=== PATIENT | male | born 1950 | race Caucasian/White ===

== ENCOUNTER 2019-06-01 11:59 | Outpatient (CLI) | payer BC ==
[~2019-06-01] VITALS: Ht 182.9 cm; Wt 102.1 kg
[~2019-06-01 11:59] MED LIST: AMLO10TA7 PO; AMLO1TAB2 PO; ASP81CT GT; ATOR10TA66 PO; HYDR25TA4 PO; LOSA100T57 PO; POTA10TA6 PO; TMSL.4C PO; VALS1TAB43 PO
== END 2019-06-01 12:32 | disposition home or self-care (01) ==
LOC: PREOP 11:59
PROVIDERS: ATTEND Internal Medicine
DX: Z01.818 Encounter for other preprocedural examination (principal)

== ENCOUNTER 2019-06-02 09:20 | Day surgery (SDC) | payer BC ==
--- NOTE | 2019-05-29 18:21 | HISTORY AND PHYSICAL ---
DATE OF SERVICE: COLONOSCOPY HISTORY AND PHYSICAL HISTORY OF PRESENT ILLNESS: The patient is a 68-year-old white male referred by Dr. Silvestre for diagnostic colonoscopy. He has a past history of adenomatous colonic polyps and there is a family history for colon cancer, the index case being his grandmother, who was diagnosed around the age of 40. I last performed colonoscopy on him 3 years ago at which time, he had one tubular adenoma removed from the hepatic flexure and several hyperplastic polyps removed, one from the rectosigmoid junction and the other one from the distal rectum. Since that time, he reports some intermittent small volume bright red blood per rectum, mostly intermittently noted when he wipes. He has had no bowel habit change. Denies any change in weight and has had no abdominal pain. Reports his energy level is good. PAST MEDICAL HISTORY: Significant for hypertension and hyperlipidemia with no known history of vascular disease. He also has a history of ureterolithiasis. PAST SURGICAL HISTORY: Includes left inguinal herniorrhaphy in 1956, tonsillectomy and adenoidectomy in 1957, vasectomy in 1985. He had an L5-S1 hemilaminectomy and foraminectomy in 1995 and epididymectomy in 2004. He had repeat back surgery at the L3-L4 levels per Dr. Vasquez in 2008 and also had repair of a CSF leak post surgery. FAMILY HISTORY: As noted in the HPI. REVIEW OF SYSTEMS: CONSTITUTIONAL: He denies any chills, fever, night sweats or change in weight. CARDIOVASCULAR: He denies dyspnea on exertion, chest pain or history of cardiovascular procedures. PULMONARY: He denies cough, wheezing, hemoptysis, dyspnea on exertion or at rest. GASTROINTESTINAL: As noted in the HPI. PHYSICAL EXAMINATION: GENERAL: Reveals a well-appearing white male, in no acute distress. VITAL SIGNS: Blood pressure was 140/93, weight 230.4 up 6 pounds from 3 years ago. HEENT: Unremarkable. He has a Mallampati class 1 oropharyngeal configuration. Pharynx reveals no evidence for exudate, no erythema. NECK: Revealed no JVD, adenopathy or bruits. CHEST: Clear to auscultation. CARDIOVASCULAR: Reveals a regular rate and rhythm without murmur, S3 or S4. ABDOMEN: Soft, supple without mass, organomegaly or tenderness. No evidence for abdominal aortic aneurysm is noted. No bruits are appreciated. EXTREMITIES: Reveal no cyanosis, clubbing or edema. ASSESSMENT: The patient was set up for diagnostic colonoscopy due to family history for colon cancer as well as past history of multiple adenomatous colonic polyps being removed, although not of the degree to qualify for a polyposis syndrome. Prep instructions with Gallagher-prep kit were given and questions were answered. I thank you for the referral of this pleasant gentleman. Job ID: [id number] DocumentID: [id number] Dictated Date: 05/25/2019 13:23:48 Ophthalmic Nurse Date: 05/25/2019 13:58:20 Dictated By: TIFFANIE MOHR MD MTDD
[~2019-06-02] VITALS: Ht 182.9 cm; Wt 102.1 kg
[2019-06-02 09:40] VITALS: BP 140/98
[2019-06-02] MEDS ORDERED: LIDOCAINE JELLY 2% 6 ML SYRINGE MM PRN (09:45)
[2019-06-02] MEDS ORDERED: MIDAZOLAM 2 MG/2 ML (VERSED) VIAL IVP ONE (09:45)
[2019-06-02] MEDS ORDERED: D5 LR IV SOLUTION 1,000 ML IV PRN (09:45)
[2019-06-02] MEDS ORDERED: fentaNYL INJECTION 100 MCG/2 ML AMP IVP ONE (09:45)
[2019-06-02] MEDS ORDERED: D5 LR IV SOLUTION 1,000 ML IV ONE (09:47)
[2019-06-02] MEDS ORDERED: fentaNYL INJECTION 100 MCG/2 ML AMP ONE ×2 (10:42)
[2019-06-02] MEDS ORDERED: MIDAZOLAM 2 MG/2 ML (VERSED) VIAL ONE ×3 (10:42)
--- OUTSIDE RECORDS SUMMARY | 2019-06-02 10:53 | XMS REPORT | Continuity of Care Document ---
Author Author [facility] Organization [facility] Address Unknown Phone Unavailable Care Team Providers Care Director Clinical Information Services Name Role Phone SAIDA SALAS DO PP Insurance Providers Payer Name Policy Number Subscriber Name Relationship [facility] [id number] Jessenia Paulino 02 Advance Directives Directive Response Recorded Date Advance Directives Y 08/15/13 9:00am Health Care Power of Wildlife Ecologist N 08/15/13 9:00am Organ Donor Y 08/15/13 9:00am Problems No Known Problems or Medical conditions. Allergies, Adverse Reactions, Alerts Allergen Type Severity Reaction Last Updated iodine Allergy Mild HIVES 08/04/10 Medications Medication Dose Units Route Sig Qty Days Aspirin (Baby Aspirin Chewable Tablet) 81 Mg GT Potassium Chloride (Klor-Con 10 Tablet) 1 Each PO DAILY WITH FOOD Amlodipine/Atorvast Jonnathan (Caduet 10 Mg-10 Mg Tablet) 1 Each PO DAILY HCTZ/Valsartan (Diovan Hct 160-25 Mg Tablet) 1 Each PO DAILY Tamsulosin HCl (Flomax) 0.8 Mg PO DAILY@1800 Immunizations Name Given Type Date of Influenza Vaccine 07/14/13 H Response Recorded Date/Time Status not known Unknown Results Test Date Result Interp. Ref. Range BUN/Creatinine Ratio April 17, 2011 8:45am 16 - Basophils # (Auto) April 17, 2011 8:45am 0.1 10^3/uL N 0.0-0.1 Basophils (%) (Auto) April 17, 2011 8:45am 1 % N 0-10 Blood Urea Nitrogen April 17, 2011 8:45am 19 MG/DL H 7-18 Calcium Level April 17, 2011 8:45am 9.0 MG/DL N 8.5-10.1 Carbon Dioxide Level April 17, 2011 8:45am 29 MMOL/L N 21-32 Chloride Level April 17, 2011 8:45am 102 MMOL/L N 101-110 Creatinine April 17, 2011 8:45am 1.2 MG/DL N 0.6-1.3 Eosinophils # (Auto) April 17, 2011 8:45am 0.4 10^3/uL H 0.0-0.3 Eosinophils (%) (Auto) April 17, 2011 8:45am 3 % N 0-10 Glucose Level April 17, 2011 8:45am 91 MG/DL N 74-106 Hematocrit April 17, 2011 8:45am 44 % N 40-54 Hemoglobin April 17, 2011 8:45am 15.5 G/DL N 13.3-17.7 Lymphocytes # (Auto) April 17, 2011 8:45am 1.3 X 10^3 N 1.0-4.0 Lymphocytes (%) (Auto) April 17, 2011 8:45am 13 % N 12-44 Mean Corpuscular Hemoglobin April 17, 2011 8:45am 32 PG N 25-34 Mean Corpuscular Hemoglobin Concent April 17, 2011 8:45am 36 G/DL N 32-36 Mean Corpuscular Volume April 17, 2011 8:45am 89 FL N 80-99 Mean Platelet Volume April 17, 2011 8:45am 11.7 FL H 7.4-10.4 Monocytes # (Auto) April 17, 2011 8:45am 0.8 X 10^3 N 0.0-1.0 Monocytes (%) (Auto) April 17, 2011 8:45am 8 % N 0-12 Neutrophils # (Auto) April 17, 2011 8:45am 7.7 X 10^3 N 1.8-7.8 Neutrophils (%) (Auto) April 17, 2011 8:45am 75 % N 42-75 Platelet Count April 17, 2011 8:45am 185 10^3/uL N 130-400 Potassium Level April 17, 2011 8:45am 3.1 MMOL/L L 3.6-5.0 Red Blood Count April 17, 2011 8:45am 4.89 10^6/uL N 4.35-5.85 Red Cell Distribution Width April 17, 2011 8:45am 13.4 % N 10.0-14.5 Sodium Level April 17, 2011 8:45am 143 MMOL/L N 135-145 White Blood Count April 17, 2011 8:45am 10.2 10^3/uL N 4.3-11.0 Estimat Glomerular Filtration Rate April 17, 2011 8:45am > 60 - Procedures Procedure Code Date LESION REMOVE COLONOSCOPY 14700 10/17/07 LESION REMOVE COLONOSCOPY 80910 08/04/10 MRSA Screen 04/17/11 Encounters Encounter Location Date/Time Departed Emergency Room [facility] 12:00am
--- OUTSIDE RECORDS SUMMARY | 2019-06-02 10:54 | XMS REPORT | Continuity of Care Document ---
Author Organization Unknown Address Unknown Allergies Active Description Code Type Severity Reaction Onset Reported/Identified Relationship to Patient Clinical Status Yes iodine [id number] Drug Allergy Mild HIVES 08/04/2010 Medications There is no data. Problems Date Dx Coded Attending Type Code Diagnosis Diagnosed By 08/15/2013 TIFFANIE MOHR MD Ot 211.3 BENIGN NEOPLASM LG BOWEL 08/15/2013 TIFFANIE MOHR MD Ot 562.10 DIVERTICULOSIS COLON (W/O MENT OF HEMORR 08/15/2013 TIFFANIE OMHR MD Ot 569.0 ANAL RECTAL POLYP 08/15/2013 TIFFANIE MOHR MD Ot V16.0 FAMILY HX-GI MALIGNANCY 08/15/2013 TIFFANIE MOHR MD Ot V76.51 SCREEN MAL NEOP-COLON 07/30/2016 TIFFANIE MOHR MD Ot Z01.818 ENCOUNTER FOR OTHER PREPROCEDURAL EXAMIN 07/31/2016 TIFFANIE MOHR MD Ot D12.3 BENIGN NEOPLASM OF TRANSVERSE COLON 07/31/2016 TIFFANIE MOHR MD Ot K62.1 RECTAL POLYP 07/31/2016 TIFFANIE MOHR MD Ot K63.5 POLYP OF COLON 07/31/2016 TIFFANIE MOHR MD Ot Z12.11 ENCOUNTER FOR SCREENING FOR MALIGNANT NE 03/29/2017 TIFFANIE MOHR MD Ot V72.84 EXAM PRE-OPERATIVE NOS 03/29/2017 PATRIC SILVESTRE DO Ot 722.52 LUMB/LUMBOSAC DISC DEGEN 03/29/2017 TIFFANIE MOHR MD Ot Z01.818 ENCOUNTER FOR OTHER PREPROCEDURAL EXAMIN Procedures There is no data. Results Test Result Range Lab Card - 07/15/17 09:17 LabCard Specimen submitted to [facility] for Testing. PSA Yearly Screen - 07/14/18 08:55 PSA TOTAL 0.5 ng/mL 0.0-4.0 Encounters ACCT No. Visit Date/Time Discharge Status Pt. Type Provider Facility Loc./Unit Complaint [id number] 07/31/2016 07:16:00 07/31/2016 10:00:00 DIS Outpatient TIFFANIE MOHR MD [facility] HISTORY OF POLYPS [id number] 07/29/2016 06:03:00 07/29/2016 23:59:59 CLS Outpatient TIFFANIE MOHR MD [facility] PREOP HISTORY OF POLYPS [id number] 04/06/2014 10:04:00 04/06/2014 23:59:59 CLS Outpatient PATRIC SILVESTRE DO [facility] RAD LOW BACK PAIN [id number] 08/15/2013 08:30:00 08/15/2013 11:10:00 DIS Outpatient TIFFANIE MOHR MD [facility] SCREENING; FAMILY HX COLON CANCER [id number] 08/10/2013 10:09:00 08/10/2013 23:59:59 CLS Outpatient TIFFANEI MOHR MD [facility] PREOP SCREENING; FAMILY HX COLON CANCER [id number] 06/02/2019 10:30:00 PEN Preadmit TIFFANIE MOHR MD [facility] ENDO COLON POLYPS [id number] 05/31/2019 06:02:00 ACT Outpatient TIFFANIE MOHR MD [facility] PREOP COLONOSCOPY [id number] 07/14/2018 08:51:00 07/14/2018 23:59:00 DIS Outpatient Patric Silvestre [id number] 07/15/2017 09:07:00 07/15/2017 23:59:00 DIS Outpatient Patric Silvestre
--- NOTE | 2019-06-02 11:06 | Pre-Op Note & Conscious Sedat ---
Pre-Operative Progress Note H&P Reviewed The H&P was reviewed, patient examined and no changes noted. Date H&P Reviewed: Jun 02, 2019 Time H&P Reviewed: 10:30 Conscious Sedation Pre-Proced ASA Score 2 For ASA 3 and 4: Consider anesthesia and medical clearance. Also, for patients with a history of failed moderate sedation consider anesthesia. Airway Lungs Heart ASA score ASA 1: a normal healthy patient ASA 2: a patient with a mild systemic disease (mid diabetes, controlled hypertension, obesity ASA 3: a patient with a severe systemic disease that limits activity (angina, COPD, prior Myocardial infarction) ASA 4: a patient with an incapacitating disease that is a constant threat to life (CHF, renal failure) ASA 5: a moribund patient not expected to survive 24 hrs. (ruptured aneurysm) ASA 6: a declared brain- patient whose organs are being harvested. For emergent operations, add the letter E after the classification Mallampati Classification Grade 1 Sedation Plan Analgesia, Amnesia, Plan communicated to team members, Discussed options with patient/fam, Discussed risks with patient/fam The patient is an appropriate candidate to undergo the planned procedure, sedation, and anesthesia. The patient immediately re-assessed prior to indication. TIFFANIE MOHR MD Jun 02, 2019 11:06
[2019-06-02 11:40] VITALS: BP 137/84
[2019-06-02 12:30] VITALS: BP 139/92
[2019-06-02 12:35] VITALS: BP 139/92
--- NOTE | 2019-06-02 19:12 | OPERATIVE REPORT ---
DATE OF SERVICE: COLONOSCOPY SUMMARY INDICATION FOR THE PROCEDURE: Surveillance colonoscopy due to past history of colonic polyps. DESCRIPTION OF PROCEDURE: The patient was placed in the left lateral decubitus position. Prior to undergoing colonoscopy, digital rectal evaluation was performed. Anal sphincter tone was normal. Perianal reflexes intact. No abnormalities. No additional inspection of the anal canal or distal rectal vault. The prostate is mildly enlarged, anodular and nontender to digital inspection. The colonoscope was then inserted into the rectum and under direct visualization advanced to the cecum. The cecum was identified by identification of the ileocecal valve and cecal strap. Photographic documentation was obtained. Careful inspection was made as the colonoscope was withdrawn. The patient tolerated the procedure well. FINDINGS: There was no evidence for internal or external hemorrhoids. Multiple diminutive rectosigmoid junction and proximal rectal hyperplastic appearing polyps were noticed, larger ones were biopsied and ablated. Present in the mid sigmoid colon were 2 diminutive polyps. They were biopsied and ablated and submitted for histopathology. Similar polyp was noted in the distal transverse colon, was biopsied and ablated as well. One medium size sigmoid diverticulum was present without evidence for diverticulitis. The remainder of the colonoscopy including hepatic flexure, ascending colon, cecum was unremarkable. ASSESSMENT: Multiple diminutive hyperplastic appearing polyps were again noted, two were biopsied and ablated from the rectosigmoid junction, two from the mid sigmoid colon and one from the distal transverse colon. As long as there are no surprises on histopathology report, we will advocate repeat surveillance colonoscopy in 3 years. Job ID: [id number] DocumentID: [id number] Dictated Date: 06/02/2019 12:03:36 Softball Player Date: 06/02/2019 19:12:21 Dictated By: TIFFANIE MOHR MD
== END 2019-06-02 12:40 | disposition home or self-care (01) ==
LOC: ENDO 09:20
PROVIDERS: ATTEND Internal Medicine
DX: Z12.11 Encounter for screening for malignant neoplasm of colon (principal); D12.3 Benign neoplasm of transverse colon; K63.5 Polyp of colon; I10 Essential (primary) hypertension; E78.5 Hyperlipidemia, unspecified; Z88.3 Allergy status to other anti-infective agents; Z86.010 Personal history of colon polyps; Z98.52 Vasectomy status; Z80.0 Family history of malignant neoplasm of digestive organs
CPT/HCPCS: 88305

== ENCOUNTER → 2021-06-27 | Outpatient (CLI) | payer BC ==
[~2021-06-27] MED LIST changes: +AMLO-251 PO; -AMLO10TA7 PO
--- NOTE | 2021-06-27 15:15 | Diagnostic Imaging Report ---
PROCEDURE: US Scrotum. TECHNIQUE: Multiple real-time grayscale images were obtained over the scrotum in various projections bilaterally. INDICATION: Left scrotal mass. Palpable area of concern. COMPARISON: None. FINDINGS: Testicles are symmetric in size, shape, and echogenicity. Right testicle measures 2.5 x 3.2 x 1.9 cm and left testicle measures 4.5 x 3 x 2.1 cm. No focal parenchymal testicular mass is seen. Vascularity appears normal. Multiple anechoic structures are identified within the head of the left epididymis. This may represent multiple contiguous epididymal head cysts. Small left-sided hydrocele is present. Note is also made of left-sided varicocele. Focused sonographic evaluation of the patient's palpable area of concern demonstrates a 1.3 x 1.2 x 1.2 cm hypoechoic structure immediately adjacent to the left-sided varicocele. Color flow images show no presence of internal vascularity within the area of concern. There is however normal vascular flow within the left-sided varicocele. IMPRESSION: 1. Patient's palpable area of concern corresponds to hypoechoic area immediately adjacent to left-sided varicocele. Conceivably, this could represent thrombosed varix. Sperm granuloma is also consideration. This could be followed in three to four months to ensure stability. 2. Normal appearance to the bilateral testicles. No focal parenchymal mass is identified on either side. 3. Small left hydrocele. Dictated by: Dictated on workstation # [id number]
== END ==
LOC: RAD 12:30
PROVIDERS: ATTEND Urology
DX: N43.3 Hydrocele, unspecified (principal); N50.89 Other specified disorders of the male genital organs
CPT/HCPCS: 76870

== ENCOUNTER 2022-01-16 07:03 | Emergency (ER) | payer BC ==
[~2022-01-16] VITALS: Ht 182.9 cm; Wt 110.7 kg
--- NOTE | 2022-01-16 07:43 | ED Lower Extremity ---
General Chief Complaint: Lower Extremity Stated Complaint: FALL - L FOOT PAIN Source: patient Exam Limitations: no limitations (TERE OLIVARES STUDENT) History of Present Illness Date Seen by Provider: Jan 16, 2022 Time Seen by Provider: 07:30 Initial Comments Patient is a 71 year old male with history of HTN and HLP who presents to the ED after a fall this am at 0400 while taking his dog outside walking down the stairs and slipped and fell on the ice/snow injuring his left foot. Reports that he did not hit his head or loose consciousness. Denies headache, nausea, blurry vision, dizziness, otorrhea, and rhinorrhea. Took a dose of aleve a few hours ago and is currently not in pain. Reports the left foot is swollen on the dorsal surface. Is able to walk but states it hurts to bear weight on his foot so is walking on his heel. States he has tenderness to the dorsal aspect of his left foot. He reports small abrasion on the left medial aspect of his foot as well. Denies numbness/tingling or loss of sensation in the left foot. Never felt any pop or cracking sensation. Onset: this morning Pain/Injury Location: left foot Method of Injury: fell Modifying Factors: Improves With Jarring, Improves With Movement (TERE OLIVARES MED STUDENT) Initial Comments I have reviewed the above and agree. additional HPI, ROS obtained and verified by me. (FREDIS XIAO MD) Allergies and Home Medications Allergies Coded Allergies: iodine (Unverified Allergy, Mild, HIVES, 06/01/19) Patient Home Medication List Amlodipine Besylate (Amlodipine Besylate) 10 Mg Tablet, 10 MG PO DAILY, (Reported) Entered as Reported by: SIMIN TAVARES on 06/01/19 1145 Atorvastatin Calcium (Atorvastatin Calcium) 10 Mg Tablet, 10 MG PO DAILY, (Reported) Entered as Reported by: SIMIN TAVARES on 06/01/19 1145 Hydrochlorothiazide (Hydrochlorothiazide) 25 Mg Tablet, 25 MG PO DAILY, (Reported) Entered as Reported by: SIMIN TAVARES on 06/01/19 1145 Losartan Potassium (Losartan Potassium) 100 Mg Tablet, 100 MG PO DAILY, (Report ed) Entered as Reported by: SIMIN TAVARES on 06/01/19 1145 Review of Systems Constitutional: no symptoms reported; No chills, No diaphoresis, No dizziness, No fever EENTM: No ear discharge, No blurred vision, No double vision, No vision loss Respiratory: no symptoms reported; No cough, No short of breath Cardiovascular: no symptoms reported; No chest pain, No edema, No palpitations Gastrointestinal: No abdominal pain, No constipation, No diarrhea, No nausea, No vomiting Genitourinary: no symptoms reported; No discharge, No dysuria, No frequency Musculoskeletal: No back pain, No joint pain; joint swelling, other (Left foot swollen) Skin: no symptoms reported; No change in color, No change in hair/nails Psychiatric/Neurological: No Symptoms Reported; Denies Anxiety, Denies Depressed, Denies Headache, Denies Numbness, Denies Tingling (JOE OLIVARESEmprivo STUDENT) All Other Systems Reviewed Negative Unless Noted: Yes (JOE OLIVARESEmprivo STUDENT) Past Tvsygyh-Mbllaw-Mqtzss Hx Patient Social History Tobacco Use?: No Smoking Status: Never a Smoker Smokeless Tobacco Frequency: Never a User Use of E-Cig and/or Vaping dev: No Use of E-Cig and/or Vaping Matthew: Never a User Substance use?: No Alcohol Use?: No Pt feels they are or have been: No (JOE OLIVARESEmprivo STUDENT) Immunizations Up To Date Tetanus Booster (TDap): Unknown First/Initial COVID19 Vaccinat: Moderna X 3 (JOE OLIVARESEmprivo STUDENT) Seasonal Allergies Seasonal Allergies: No (JOE OLIVARESEmprivo STUDENT) Past Medical History Surgeries: Yes (BACK X4, HERNIA, SEVERAL COLONOSCOPY) Tonsillectomy, Vasectomy Respiratory: No Currently Using CPAP: No Currently Using BIPAP: No Cardiac: Yes High Cholesterol, Hypertension Neurological: No Reproductive Disorders: No Sexually Transmitted Disease: No HIV/AIDS: No Genitourinary: No Gastrointestinal: No Musculoskeletal: No Endocrine: No HEENT: No (GLASSES) Loss of Vision: Denies Hearing Impairment: Denies Cancer: No Psychosocial: No Integumentary: Yes (MILD) Eczema Blood Disorders: No Adverse Reaction/Blood Tranf: No (N/A) (JOE OLIVARESEmprivo STUDENT) Physical Exam Vital Signs Vital Signs - First Documented 01/16/22 07:20 Temp 36.4 Pulse 58 Resp 18 B/P (MAP) 151/89 (109) O2 Delivery Room Air (FREDIS XIAO MD) Vital Signs Capillary Refill : (TERE OLIVARES MED STUDENT) Height, Weight, BMI Height: 6'0.00" Weight: 225lbs. 0.0oz. 102.142089rq; 30.5 BMI Method: General Appearance: WD/WN, no apparent distress HEENT: PERRL/EOMI, pharynx normal Neck: non-tender, full range of motion Cardiovascular: normal peripheral pulses, regular rate, rhythm, no murmur Respiratory: chest non-tender, lungs clear, normal breath sounds, no respiratory distress Gastrointestinal: normal bowel sounds, non tender, soft Back: normal inspection, no vertebral tenderness Hips: bilateral hip non-tender, bilateral hip normal range of motion, bilateral hip no evidence of injury Legs: bilateral leg non-tender, bilateral leg normal range of motion, bilateral leg no evidence of injury Knees: bilateral knee non-tender, bilateral knee normal range of motion, bilateral knee no evidence of injury Ankles: bilateral ankle non-tender, bilateral ankle normal range of motion Feet: right foot non-tender, right foot normal inspection, right foot normal range of motion; left foot abrasions/lacerations, left foot pain, left foot swelling Neurologic/Tendon: normal sensation, normal motor functions; No motor deficit, No sensory deficit Neurologic/Psychiatric: no motor/sensory deficits, alert, normal mood/affect, oriented x 3 Skin: normal color, warm/dry, other (small abrasion to medial aspect left foot) Lymphatic: no adenopathy (Head and Neck) (TERE OLIVARES MED STUDENT) Feet: bilateral foot other (left foot swelling over the dorsal foot with t enderness over the proximal metatarsals. Distal NVI. small abrasion at the medial MTP joint. Ankle is stable.) (FREDIS XIAO MD) Progress/Results/Core Measures Results/Orders My Orders Orders - FREDIS XIAO MD Foot, Left, 3 Views (01/16/22 07:40) (FREDIS XIAO MD) Vital Signs/I&O 01/16/22 07:20 Temp 36.4 Pulse 58 Resp 18 B/P (MAP) 151/89 (109) O2 Delivery Room Air (FREDIS XIAO MD) Diagnostic Imaging Diagonstic Imaging: Xray Comments NAME: YANN SRINIVASAN II [facility] REC#: [id number] PT STATUS: REG ER : 1950 PHYSICIAN: FREDIS XIAO MD ADMIT DATE: 01/16/22/ER Draft Date of Exam:01/16/22 FOOT, LEFT, 3 VIEWS INDICATION: Fall with left foot pain AP, oblique, and lateral views of the left foot are obtained. There are degenerative changes of the 1st MTP joint. There is no acute fracture or acute bony abnormality seen. There is no lytic or blastic lesion IMPRESSION: No acute bone abnormality in the left foot. Degenerative changes of 1st MTP joint are noted. Dictated on workstation # [id number] Dict: 01/16/22 0753 Trans: 01/16/[address] [facility] [id number] Interpreted by: ЕЛЕНА TARIQ MD Electronically signed by: (FREDIS XIAO MD) Departure Impression Primary Impression: Sprain of left foot Qualified Codes: S93.602A - Unspecified sprain of left foot, initial encounter Disposition: 01 HOME, SELF-CARE Condition: Stable Departure-Patient Inst. Decision time for Depature: 07:59 (FREDIS XIAO MD) Referrals: SAIDA SALAS DO (PCP/Family) Primary Care Physician Patient Instructions: Foot Sprain (DC) Add. Discharge Instructions: Elevate the left foot today and tomorrow to reduce swelling. Wear a good supportive shoe while walking. Aleve 2 pills (500mg) twice a day with food as needed for pain. You can supplement with Additional Tylenol 1000mg every 6 hours. Follow up with your primary care physician as needed. Return to the ER for any new, concerning or emergent complaints. Verification and Attestation of Medical Student E/M Service A medical student performed and documented this service in my presence. I reviewed and verified all information documented by the medical student and made modifications to such information, when appropriate. I personally performed the physical exam and medical decision making. Fredis Xiao, Jan 16, 2022,08:00 (FREDIS XIAO MD) TERE OLIVARES MED STUDENT Jan 16, 2022 07:43 FREDIS XIAO MD Jan 16, 2022 08:01
--- NOTE | 2022-01-16 07:55 | Diagnostic Imaging Report ---
INDICATION: Fall with left foot pain AP, oblique, and lateral views of the left foot are obtained. There are degenerative changes of the 1st MTP joint. There is no acute fracture or acute bony abnormality seen. There is no lytic or blastic lesion IMPRESSION: No acute bone abnormality in the left foot. Degenerative changes of 1st MTP joint are noted. Dictated by: Dictated on workstation # [id number]
[2022-01-16 08:07] VITALS: BP 145/73
== END 2022-01-16 08:07 | disposition home or self-care (01) ==
LOC: EDUNIT# 07:03 → ER 07:04
DX: S93.602A Unspecified sprain of left foot, initial encounter (principal); W00.0XXA Fall on same level due to ice and snow, initial encounter; Y93.K1 Activity, walking an animal
CPT/HCPCS: 73630

== ENCOUNTER 2022-05-27 06:24 | Outpatient (CLI) | payer BC ==
[~2022-05-27] VITALS: Ht 182.9 cm; Wt 110.7 kg
== END 2022-05-27 08:32 | disposition home or self-care (01) ==
LOC: PREOP 06:24
PROVIDERS: ATTEND Internal Medicine
DX: Z01.818 Encounter for other preprocedural examination (principal)

== ENCOUNTER 2022-05-29 06:51 | Day surgery (SDC) | payer BC, MEDICARE ==
--- NOTE | 2022-05-26 21:10 | HISTORY AND PHYSICAL ---
DATE OF SERVICE: COLONOSCOPY HISTORY AND PHYSICAL DATE OF ADMISSION: . HISTORY OF PRESENT ILLNESS: The patient is a 71-year-old white male referred by Dr. Silvestre for surveillance colonoscopy. He has a past history of colon polyps. He last underwent colonoscopy in 2019. He had several hyperplastic polyps removed from the rectum and rectosigmoid junction and one tubular adenoma removed from the distal transverse colon. He has had history of multiple past colonic polyps, does not meet criteria for polyposis syndrome. He reports no change in his medical history over the last three years. He has noted no blood in the stool. Denies bowel habit change, abdominal pain or melena. PAST MEDICAL HISTORY: Significant for hypertension and hyperlipidemia with no known history of vascular disease. He also has a history of ureterolithiasis. No recurrences over the last three years. PAST SURGICAL HISTORY: He has had an L4-5 hemilaminectomy and foraminectomy in 1995. He had an appendectomy in 1957, vasectomy in 1985, and epididymectomy in 2004. He also underwent L3-[address] Estrada in 2008. PHYSICAL EXAMINATION: GENERAL: Reveals a white male, appears to be in no acute distress. VITAL SIGNS: Blood pressure 140/82 and weight is 245 pounds. HEENT: Unremarkable. Sclerae nonicteric. CHEST: Clear to auscultation. CARDIOVASCULAR: Reveals a regular rate and rhythm without murmur, S3 or S4. ABDOMEN: Soft, supple without mass, organomegaly or tenderness. EXTREMITIES: Reveal no cyanosis, clubbing or edema. ASSESSMENT AND PLAN: The patient is being set up for surveillance colonoscopy due to past history of colonic polyps. Prep instructions were given and questions were answered. I thank you for the referral of this pleasant gentleman. Job ID: [id number] DocumentID: [id number] Dictated Date: 05/26/2022 10:43:33 Detective Chief Date: 05/26/2022 11:15:57 Dictated By: TIFFANIE MOHR MD
[~2022-05-29] VITALS: Ht 183 cm; Wt 110.7 kg
[2022-05-29] MEDS ORDERED: LACTATED RINGERS 1,000 ML IV STA (07:07)
[2022-05-29 07:10] VITALS: BP 137/92
[2022-05-29] MEDS ORDERED: MIDAZOLAM 2 MG/2 ML (VERSED) VIAL ONE (07:46)
[2022-05-29] MEDS ORDERED: PROPOFOL INJECTION 50 ML IV ONE (07:46)
--- NOTE | 2022-05-29 08:02 | Pre-Op Note & Conscious Sedat ---
Pre-Operative Progress Note H&P Reviewed The H&P was reviewed, patient examined and no changes noted. Date H&P Reviewed: May 29, 2022 Time H&P Reviewed: 07:50 Conscious Sedation Pre-Proced ASA Score 2 For ASA 3 and 4: Consider anesthesia and medical clearance. Also, for patients with a history of failed moderate sedation consider anesthesia. Airway Lungs Heart ASA score ASA 1: a normal healthy patient ASA 2: a patient with a mild systemic disease (mid diabetes, controlled hypertension, obesity ASA 3: a patient with a severe systemic disease that limits activity (angina, COPD, prior Myocardial infarction) ASA 4: a patient with an incapacitating disease that is a constant threat to life (CHF, renal failure) ASA 5: a moribund patient not expected to survive 24 hrs. (ruptured aneurysm) ASA 6: a declared brain- patient whose organs are being harvested. For emergent operations, add the letter E after the classification Mallampati Classification Grade 2 Sedation Plan Analgesia, Amnesia, Plan communicated to team members, Discussed options with patient/fam, Discussed risks with patient/fam The patient is an appropriate candidate to undergo the planned procedure, sedation, and anesthesia. The patient immediately re-assessed prior to indication. TIFFANIE MOHR MD May 29, 2022 08:02
[2022-05-29 08:35] VITALS: BP 115/71
[2022-05-29 08:40] VITALS: BP 110/67
--- NOTE | 2022-05-29 08:49 | Anesthesia-General Post-Op ---
MAC Patient Condition Mental Status/LOC: Same as Preop Cardiovascular: Satisfactory Nausea/Vomiting: Absent Respiratory: Satisfactory Pain: Controlled Complications: Absent Post Op Complications Complications None Follow Up Care/Instructions Patient Instructions None needed. Anesthesiology Discharge Order Discharge Order Patient is doing well, no complaints, stable vital signs, no apparent adverse anesthesia problems. No complications reported per nursing. RUPERT GUERRERO CRNA May 29, 2022 08:49
[2022-05-29 09:00] VITALS: BP 130/89
--- NOTE | 2022-05-29 17:18 | OPERATIVE REPORT ---
DATE OF SERVICE: COLONOSCOPY SUMMARY INDICATION FOR THE PROCEDURE: Surveillance, history of colon polyps. DESCRIPTION OF PROCEDURE: The patient was placed in the left lateral decubitus position. Prior to undergoing colonoscopy, a digital rectal evaluation was performed. Anal sphincter tone was normal and the perianal reflexes intact. The colonoscope was then inserted into the rectum and under direct visualization advanced to the cecum. The cecum was identified by identification of the ileocecal valve and cecal strap. Photographic documentation was obtained. A careful inspection was made as the colonoscope was withdrawn. There were no abnormalities noted on digital rectal evaluation, the prostate is anodular and unremarkable to digital inspection. FINDINGS: There was no evidence for internal or external hemorrhoids. The rectum revealed several hyperplastic appearing polyps, the largest one was biopsied and ablated from the mid rectum. Present in the mid sigmoid colon was a sessile polyp. It was biopsied and ablated. Similar polyps were noted at the splenic flexure, proximal transverse colon and proximal ascending colon, all were ablated with hot forceps with no subsequent blood loss. Cecum was unremarkable. ASSESSMENT: Four polyps were removed today as noted above. The patient probably has at least 5 or 6 hyperplastic polyps that were left in the rectum and distal sigmoid colon. As long as there are no surprises on histopathology report, would advocate consideration for repeat surveillance colonoscopy in three years. Job ID: [id number] DocumentID: [id number] Dictated Date: 05/29/2022 08:35:24 Analytics Developer Date: 05/29/2022 17:17:30 Dictated By: TIFFANIE MOHR MD
== END 2022-05-29 09:33 | disposition home or self-care (01) ==
LOC: ENDO 06:51
PROVIDERS: ATTEND Internal Medicine
DX: Z12.11 Encounter for screening for malignant neoplasm of colon (principal); D12.2 Benign neoplasm of ascending colon; D12.3 Benign neoplasm of transverse colon; K63.5 Polyp of colon; K62.1 Rectal polyp
CPT/HCPCS: 88305